=== PATIENT | male | born 1975 | race Caucasian/White ===

== ENCOUNTER → 2020-02-03 12:39 | Outpatient (CLI) | payer MEDICAID, SELFPAY ==
--- NOTE | 2020-02-03 12:48 | XR_ITS ---
PROCEDURE: XR FOOT WT BEARING LT 3V CLINICAL INDICATION: Comparison view COMPARISON: XR FOOT WT BEARING RT 3V from 02/03/2020 FINDINGS: No fracture or dislocation. No lytic or blastic change. There is normal mineralization. The joint spaces are well-preserved. No significant degenerative/arthritic changes. No erosive changes evident. Other findings:None. IMPRESSION: No acute findings. Dictated by: Sam Gutierres MD 02/03/2020 14:57 Electronically signed by Sam Gutierres MD in [place] 02/03/2020 14:57
--- NOTE | 2020-02-03 12:48 | XR_ITS ---
PROCEDURE: XR FOOT WT BEARING RT 3V CLINICAL INDICATION: Foot pain COMPARISON: No exams were available for comparison FINDINGS: No fracture or dislocation. No lytic or blastic change. There is normal mineralization. The joint spaces are well-preserved. No significant degenerative/arthritic changes. No erosive changes evident. Other findings:None. IMPRESSION: No acute findings. Dictated by: Sam Gutierres MD 02/03/2020 14:40 Electronically signed by Sam Gutierres MD in [place] 02/03/2020 14:40
[2020-02-03 14:54] LABS: Basophils # 0.1 K/mm3 (0-0.2); Basophils % 0.6 % (0.1-2.0); Eosinophils # 0.4 K/mm3 (0.0-0.4); Eosinophils % 4.2 % (0.1-12.0); Hematocrit 33.7 % (42.0-52.0); Hemoglobin 11.6 g/dL (14.1-18.0); Lymphocytes # 1.1 K/mm3 (0.7-4.5); Lymphocytes % 12.4 % (10-50); Mean Corpuscular HGB Conc 34.4 g/dL (31.8-35.4); Mean Corpuscular Hemoglobin 30.9 pg (27.0-31.2); Mean Corpuscular Volume 89.9 fl (80-94); Mean Platelet Volume 7.9 fl (7.4-10.4); Monocytes # 0.7 K/mm3 (0.1-1.0); Monocytes % 7.8 % (1.7-9.3); Neutrophils # 6.6 K/mm3 (1.8-7.8); Platelet Count 446 K/mm3 (142-424); Red Blood Count 3.75 M/mm3 (4.60-6.20); Red Cell Distribution Width 12.8 % (11.5-17.5); White Blood Count 8.8 K/mm3 (4.8-10.8)
[2020-02-03 16:24] LABS: Hemoglobin A1C 8.5 % (4.0-6.0)
[2020-02-03 16:27] LABS: Erythrocyte Sedimentation Rate > 140 mm/hr (0-15)
[2020-02-03 16:28] LABS: Chloride 98 mmol/L (98-107)
[2020-02-03 16:29] LABS: Potassium 4.6 mmoL/L (3.5-5.1); Sodium 137 mmol/L (136-145)
[2020-02-03 16:31] LABS: Alanine Aminotransferase 14 U/L (12-78); Aspartate Amino Transferase 18 U/L (17-59); Blood Urea Nitrogen 27 mg/dl (9-20); Estimated Glomerular Filt Rate 92 ml/min (>60); GFR (African American) 111 ML/MIN (>60)
[2020-02-03 16:32] LABS: Albumin Level 3.4 g/dl (3.5-5.0); Albumin/Globulin Ratio 1.3 (1.1-1.8); Alkaline Phosphatase 85 U/L (38-126); Anion Gap 12.6 mEq/L (5-15); Bilirubin,Total 0.4 mg/dl (0.2-1.3); Calcium 9.2 mg/dl (8.4-10.2); Carbon Dioxide 31 mmol/L (22.0-30.0); Globulin 2.6 g/dL (1.3-3.2); Glucose 128 mg/dl (74-100)
[2020-02-03 16:37] LABS: C-Reactive Protein 153.5 mg/L (0-4)
== END ==
PROVIDERS: PCP Nurse Practitioner Family; Visit Provider Podiatrist
DX: E11.8 Type 2 diabetes mellitus with unspecified complications (principal); M20.41 Other hammer toe(s) (acquired), right foot; M20.42 Other hammer toe(s) (acquired), left foot; M21.6X1 Other acquired deformities of right foot; M21.6X2 Other acquired deformities of left foot; L97.509 Non-pressure chronic ulcer of other part of unspecified foot with unspecified severity; E11.621 Type 2 diabetes mellitus with foot ulcer; Z79.4 Long term (current) use of insulin
CPT/HCPCS: 36415; 73630; 80053; 83036; 85025; 85651; 86140; 87070; 87077; 87186; 87205

== ENCOUNTER → 2020-02-03 16:43 | Outpatient (CLI) | payer MEDICAID, SELFPAY | PROVIDERS: Visit Provider Podiatrist | DX: E11.621 Type 2 diabetes mellitus with foot ulcer (principal); L97.509 Non-pressure chronic ulcer of other part of unspecified foot with unspecified severity | CPT/HCPCS: 87070; 87205 ==

== ENCOUNTER → 2020-02-09 13:58 | Outpatient (CLI) | payer MEDICAID, SELFPAY ==
--- NOTE | 2020-02-09 13:59 | MR_ITS ---
PROCEDURE: MR FOOT RT WO/W CON CLINICAL INDICATION: evaluate for osteomyelitis Diabetes with foot ulceration, pain swelling and tenderness COMPARISON: No exams were available for comparison TECHNIQUE: Routine multiplanar multi echo sequences are performed without and with gadolinium enhancement. FINDINGS: There is bone marrow edema involving the distal aspect of the 2nd metatarsal as well as the proximal phalanx of the 2nd toe with enhancement and mild surrounding soft tissue edema. These findings are suspicious for osteomyelitis with cellulitis.. There is edema surrounding the bone beginning in the mid 2nd metatarsal region extending distally. No obvious abscess or sinus tract. There is generalized subcutaneous edema of the foot and ankle. There is mild soft tissue swelling along the 3rd and 1st digit as well. No obvious ligamentous or tendinous abnormalities. IMPRESSION: The findings are compatible with bone marrow edema of the mid distal aspect of the 2nd metatarsal and the proximal phalanx of the 2nd digit which may be related osteomyelitis with associated cellulitis. Dictated by: Sam Gutierres MD 02/10/2020 09:19 Electronically signed by Sam Gutierres MD in [place] 02/10/2020 09:19
== END ==
PROVIDERS: Visit Provider Podiatrist
DX: L97.512 Non-pressure chronic ulcer of other part of right foot with fat layer exposed (principal); L97.519 Non-pressure chronic ulcer of other part of right foot with unspecified severity
CPT/HCPCS: 73720; A9576

== ENCOUNTER → 2020-02-11 15:06 | Outpatient (CLI) | payer MEDICAID, SELFPAY ==
--- NOTE | 2020-02-11 15:18 | ECG_ITS ---
APPROVED REPORT Exam: Resting ECG HR:81 bpm ECG Measurements Heart Rate 81 AXES PA 148 P 57 QRSd 90 QRS 66 QT 376 T 37 QTc 436 <Conclusion> Normal sinus rhythm Normal ECG Electronically signed by : Massimo Calderon, 02/11/2020 16:51:29
--- NOTE | 2020-02-11 15:21 | XR_ITS ---
PROCEDURE: XR CHEST 2V CLINICAL HISTORY: TOBACCO USE Smoker COMPARISON: No exams were available for comparison FINDINGS: The cardiomediastinal silhouette and pulmonary vascularity are within normal limits. The lungs are clear without infiltrates, suspicious nodules, or pleural effusions. No acute bony abnormalities. IMPRESSION: No acute findings. Dictated by: Sam Gutierres MD 02/11/2020 15:42 Electronically signed by Sam Gutierres MD in [place] 02/11/2020 15:42
== END ==
PROVIDERS: PCP Nurse Practitioner Family; Visit Provider Podiatrist
DX: Z01.818 Encounter for other preprocedural examination (principal); L97.519 Non-pressure chronic ulcer of other part of right foot with unspecified severity
CPT/HCPCS: 71046; 93005

== ENCOUNTER → 2020-02-14 08:01 | Outpatient (CLI) | payer MEDICAID, SELFPAY ==
[2020-02-15 17:22] LABS: Covid-19 Nasal PCR Sendout Lex Not Detected
== END ==
PROVIDERS: PCP Nurse Practitioner Family; Visit Provider Podiatrist
DX: Z03.818 Encounter for observation for suspected exposure to other biological agents ruled out (principal)
CPT/HCPCS: U0003

== ENCOUNTER → 2020-02-15 14:01 | Outpatient (CLI) | payer MEDICAID, SELFPAY ==
[2020-02-15 14:38] VITALS: BMI 21.3
--- NOTE | 2020-02-15 14:39 | XR_ITS ---
PROCEDURE: XR CHEST PORTABLE CLINICAL HISTORY: picc placement COMPARISON: XR CHEST 2V from 02/11/2020 FINDINGS: The cardiomediastinal silhouette and pulmonary vascularity are within normal limits. The lungs are clear without infiltrates, suspicious nodules, or pleural effusions. Left upper extremity PICC line has been placed. The tip is in good position in the region of the superior vena cava. Lung apices are clipped on the exam. IMPRESSION: New left upper extremity PICC line with tip in good position. Dictated by: Sam Gutierres MD 02/15/2020 15:01 Electronically signed by Sam Gutierres MD in [place] 02/15/2020 15:01
== END ==
PROVIDERS: PCP Nurse Practitioner Family; Visit Provider Podiatrist
DX: E10.621 Type 1 diabetes mellitus with foot ulcer (principal); L03.115 Cellulitis of right lower limb; A49.02 Methicillin resistant Staphylococcus aureus infection, unspecified site
CPT/HCPCS: 36569; 71045; C1751

== ENCOUNTER 2020-02-16 06:06 | Day surgery (SDC) | payer MEDICAID, SELFPAY ==
--- NOTE | 2020-02-12 13:20 | SUR.PREOP ---
02/12/20 @ 1320--PHONE CALL MADE TO PATIENT. PATIENT UNDERSTANDS THAT LAB WORK AND COVID-19 TESTING NEEDS TO BE COMPLETED @ 0800 @ 02/14/20. PATIENT UNDERSTANDS IF LAB WORK AND COVID-19 TESTS ARE NOT COMPLETED BY 12PM ON THAT DATE, THE SURGERY SCHEDULED WILL BE CANCELLED AND RESCHEDULED FOR ANOTHER TIME.
[2020-02-15 09:03] VITALS: BMI 21.3
--- NOTE | 2020-02-15 17:36 | PC.NURSE ---
notified of negative COVID 19 results.
[2020-02-16] VITALS (15 sets, daily range): BP systolic 132–166; BP diastolic 76–100; PULSE 89–97; RESP 15–21; TEMP 36.3–43; O2SAT 94–99
[2020-02-16 06:51] LABS: POC Glucose,Bedside 337 (70-110)
--- NOTE | 2020-02-16 07:02 | HMH.ANESCL ---
[facility] Anesthesia Checklist - Patient Identification Patient Identification: Arm Band, Verbal (Name & ) - Structural Data Admitted From: Home Planned Operative Procedure/s: Right foot I&D, second toe partial amputation Consent for Planned Operative Procedure(s) Verified: Yes Verified Documents: Surgical Consent, History and Physical - NPO Status Verified Time NPO: 04:30 (black coffee) - Chart Verification Results Verified: CBC, BMP - Additional verifications Fingerstick Blood Glucose: 337 (orders given) Anesthesia Reactions: No Hx Blood Transfusions: No Blood Transfusion Reaction: No - Airway Assessment C-Spine Mobility Assessed: Yes TMJ Mobility Assessed: Yes Dentition: Edentulous (Dentures removed) - Neurological Assessment Level of Consciousness: Awake, Alert, Appropriate, Follows Commands Hx Seizures: No Numbness or tingling in extremities: Yes (lower extremities) - Anesthesia Plan Anesthesia Risk discussed: Yes Anesthesia Plan: Verified ASA Class: III Anesthesia Type: General [facility] History I have reviewed the patient's past medical history: Yes Medical History: Reports:: Diabetes Mellitus Type 1, Hyperlipidemia, Hypertension Denies:: Cancer, Diabetes Mellitus Type 2, Internal Pacemaker, MRSA, Seizures *Have you ever received a pneumonia vaccine?: No *Have you received a flu vaccine this season?: Yes Other Medical History: Denies: Blood Transfusion Reaction Anesthesia experience/problems:: none Other Surgeries: Yes: No Previous Surgery. No: Pacemaker Amputation: No Fractures: No - *Social History Educational Level: Attended High School Smoking Status: Current every day smoker Tobacco Type: cigarettes # Packs/Day (cigarettes): 1 Alcohol Intake: never Alcohol Intake Frequency:: holidays/special occasions only Substance Use Type: marijuana *Occupational Status:: employed Housing: house Household Members: spouse *Travel in the last 8 weeks: None Family Hx:: Cancer
--- NOTE | 2020-02-16 07:08 | SUR.PREOP ---
0707-gave 10units HumulinR as per Natalia ACID PATROLLER for 337 FSBS
--- NOTE | 2020-02-16 07:22 | HMH.OPNOTE ---
Date of procedure: 02/16/20 Pre-op Diagnosis:: 1. Right diabetic foot infection 2. Right 2nd toe, metatarsal osteomyelitis 3. Right sub 2nd metatarsal diabetic foot ulcer 4. Right foot equinus 5. Right foot cellulitis 6. Right sub 4th metatarsal callus Post-op Diagnosis:: Same Procedure performed:: 1. Right second partial ray amputation (toe and partial metatarsal) 2. Right foot incision and drainage 3. Right wound debridement 4. Right excision of ulcer with delayed primary closure 5. Right tendo Achilles lengthening 6. Right sub 4th metatarsal callus debridement 7. Right application of antibiotic beads 8. Application of right posterior splint Surgeon:: Poornima Foss DPM COW RIDER:: Pan Castrejon Anesthesia: GETA, local (0.5% marcaine plain) Estimated blood loss (mL): 10 Clinical Note:: RIGHT DM FOOT INFECTION, ULCER, OM: Radiographs and MRI of the right foot were reviewed and discussed with the patient. We discussed conservative versus surgical treatment options. Conservative treatment options include local wound care, oral and IV antibiotics, change in shoe wear, taping/padding, and off-loading. Discussed that patient would benefit from a wider and deeper shoe wear to accommodate the deformity. We discussed surgical intervention for amputation of the right 2nd toe and metatarsal. Patient understands that there is a chance that the toes can migrate to fill the gap or the foot may change shape after surgery. Patient also understands that they could have wound healing complications including delayed healing and infection. We discussed that if the wound does not heal, it is possible that they may need a more proximal amputation and could result in further loss of digits, loss of partial foot or loss of leg. We discussed the risks and benefits in great detail. Other surgical risks include: prolonged pain and swelling, further infection requiring oral or IV antibiotics, delay in healing of soft tissue or bone, nerve or blood vessel damage, CRPS/RSD, DVT, anesthesia complications, and even . All questions answered. Patient verbalized understanding. Consent obtained. Medical clearance per Mercedes Rothman on 02/12/20. She started patient on nicotine patches. Pre-op labs: ESR, CRP, Ha1c, CBC, CMP, EKG, CXR reviewed. Covid test per [facility] policy. e-Rx [place] 7.5/325, Ibuprofen 800mg, Zofran 4mg. Operative findings:: Right diabetic foot infection, with cellulitis noted to the 2nd MPJ. Callus noted to sub 4th metatarsal, no underlying ulcer. Ulcer noted to sub 2nd metatarsal, measures ~3.5x1.8x0.3cm. Ulcer excised in total, no purulence noted. The 2nd proximal phalanx and met head were soft and crumbly. Margin was hard. No sinus tracking. Equinus noted. Operative note:: On this date and time patient was deemed an appropriate surgical candidate. With informed consent signed, the patient was taken to the operating theater. The patient was positioned supine. General anesthesia was induced. No tourniquet used. Pre-op right ankle and forefoot blocks given with 20 cc 0.5% marcaine plain. Right tendo Achilles lengthening: Attention was directed to the foot, which was prepped and draped in a normal sterile fashion. Utilizing a 15 blade stab incision was made x3 in the distal posterior leg. Utilizing the three holes, percutaneous greg-section of the Achilles was performed with the foot maximally dorsiflexed. Release of the Achilles contracture was noted. The incisions were flushed with copious amounts of sterile saline and the wound was closed with Prolene. Right foot incision and drainage: Attention was directed to dorsal foot where incision linear made over 2nd metatarsal proximally. Serosanginous drainage noted. Wound culture taken. Right 2nd partial ray amputation (toe + partial metatarsal): A fishmouth incision was mapped out surrounding the second digits extending onto the metatarsal head. Utilizing a 15 blade dissection was carried down sharply full-thickness to the l
[2020-02-16 08:42] LABS: POC Glucose,Bedside 76 (70-110)
[2020-02-16 08:53] LABS: POC Glucose,Bedside 73 (70-110)
--- NOTE | 2020-02-16 09:00 | XR_ITS ---
PROCEDURE: XR FOOT RT MIN 3V CLINICAL INDICATION: Post op amp Follow-up amputation COMPARISON: XR FOOT WT BEARING RT 3V from 02/03/2020 XR FOOT WT BEARING LT 3V from 02/03/2020 MR FOOT RT WO/W CON from 02/09/2020 FINDINGS: There has been amputation at the mid to distal aspect of the 2nd metatarsal with antibiotic beads in place with good alignment of the bony structures. There is a posterior splint in place. IMPRESSION: Status post amputation of the distal aspect of the 2nd metatarsal as described Dictated by: Sam Gutierres MD 02/16/2020 14:39 Electronically signed by Sam Gutierres MD in [place] 02/16/2020 14:39
[2020-02-16 09:55] LABS: POC Glucose,Bedside 86 (70-110)
--- NOTE | 2020-02-16 14:31 | SUR.PHASEI ---
0848: FSBS 73, patient felt unusual as not used to having blood sugar this low, ORNAMENTAL BRICK INSTALLER suggested OJ-patient drank 4 oz OJ and felt more alert, more himself
--- NOTE | 2020-02-16 14:38 | SUR.PHASEI ---
Passed on to post op that patient is to be contacted by [facility] bout IV antibiotic therapy, they will call him today. Check patient's sugar as he had the 4 oz OJ and he states that after one glass his sugar will go to 250 from the low 70s. Also that patient can wear his boot if it fits, but he does not have to wear it, but he is to be NWB. Also explain to patient that he is to reinforce dressing if it becomes bloody, do not remove dressing.
--- NOTE | 2020-02-16 14:44 | P.PN_ITS ---
[facility] Anesthesia Record Part I Intake, IV Amount: 840 Estimated blood loss (mL): 10 Urine output (mL): 0 Blood Pressure: 142/83 SaO2: 99 Pulse Rate: 97 Respiratory Rate: 16 Temperature: 97.9 F Patient is:: Drowsy, Stable Stable to PACU at:: 08:40
--- NOTE | 2020-02-16 14:45 | HMH.ANESII ---
[facility] Anesthesia Record Part II Discharge Time: 09:24 Destination: Surgical Day Care (OP Surgery) PACU nurse assessment reviewed?: Yes Patient Condition:: Good Anesthesia Complications:: None Swallowing reflex intact?: Yes Cyanosis?: No Blood Pressure: 138/88 Pulse Rate: 89 Temperature: 97.7 F Mental Status: Alert & Oriented Pain level:: 0 Nausea and/or vomitting:: None Intake, IV Amount: 0
[2020-02-17 08:45] LABS: POC Glucose,Bedside < 40 (70-110)
== END 2020-02-16 10:20 | disposition home or self-care (01) ==
LOC: OR 06:07
PROVIDERS: PCP Nurse Practitioner Family; Visit Provider Podiatrist
PROC: (CPT 28810; principal; 2020-02-16 07:30)
DX: E11.621 Type 2 diabetes mellitus with foot ulcer (principal); M86.071 Acute hematogenous osteomyelitis, right ankle and foot; L97.514 Non-pressure chronic ulcer of other part of right foot with necrosis of bone; L97.512 Non-pressure chronic ulcer of other part of right foot with fat layer exposed; Z79.4 Long term (current) use of insulin; Z79.899 Other long term (current) drug therapy; A49.02 Methicillin resistant Staphylococcus aureus infection, unspecified site; M67.01 Short Achilles tendon (acquired), right ankle; M24.571 Contracture, right ankle
CPT/HCPCS: 28810; 11042; 11045; 27685; 73630; 82962; 87070; 87077; 87186; 87205; 96374; C1713; J2405; J3370

== ENCOUNTER → 2020-03-29 16:09 | Outpatient (CLI) | payer MEDICAID, SELFPAY ==
--- NOTE | 2020-03-29 16:14 | XR_ITS ---
PROCEDURE: XR ANKLE WT BEARING RT MIN 3V CLINICAL INDICATION: Ankle Pain Posttraumatic pain COMPARISON: No exams were available for comparison FINDINGS: No fracture or dislocation. No lytic or blastic change. There is normal mineralization. The joint spaces are well-preserved. No significant degenerative/arthritic changes. No erosive changes evident. Other findings:None. IMPRESSION: No acute findings. Dictated by: Sam Gutierres MD 03/29/2020 16:42 Electronically signed by Sam Gutierres MD in [place] 03/29/2020 16:42
--- NOTE | 2020-03-29 16:14 | XR_ITS ---
PROCEDURE: XR FOOT WT BEARING RT 3V CLINICAL INDICATION: S/P Foot surgery Follow-up amputation COMPARISON: XR FOOT WT BEARING RT 3V from 02/03/2020 XR FOOT WT BEARING LT 3V from 02/03/2020 XR FOOT RT MIN 3V from 02/16/2020 FINDINGS: Status post amputation at the distal shaft of the 2nd metatarsal. The antibiotic beads have mostly dissolved. There is some minimal density noted at the tip of the amputation site which could be related to some minimal antibiotic beads material. No bony destructive process evident. The joint spaces are well-preserved. No significant degenerative/arthritic changes. No erosive changes evident. Other findings:None. IMPRESSION: Post amputation changes at the distal aspect of the 2nd metatarsal Dictated by: Sam Gutierres MD 03/29/2020 16:44 Electronically signed by Sam Gutierres MD in [place] 03/29/2020 16:44
== END ==
PROVIDERS: PCP Nurse Practitioner Family; Visit Provider Podiatrist
DX: Z98.890 Other specified postprocedural states (principal); M25.571 Pain in right ankle and joints of right foot
CPT/HCPCS: 73610; 73630

== ENCOUNTER → 2020-11-07 15:54 | Outpatient (CLI) | payer OTHER, SELFPAY ==
--- NOTE | 2020-11-07 16:02 | XR_ITS ---
PROCEDURE: XR FOOT WT BEARING RT 3V CLINICAL INDICATION: right hallux ulcer Follow-up amputation and ulcer COMPARISON: CR XR FOOT WT BEARING RT 3V from 02/03/2020 CR XR FOOT WT BEARING LT 3V from 02/03/2020 CR XR FOOT RT MIN 3V from 02/16/2020 CR XR FOOT WT BEARING RT 3V from 03/29/2020 FINDINGS: Hammertoe deformity is present at the 1st digit Bandage artifact with soft tissue defect noted along the dorsal aspect the 1st interphalangeal junction. There is some bony destruction suspected at the distal aspect the proximal phalanx of the great toe suggesting acute osteomyelitis. MRI may confirm if clinically desired. There has been amputation at the distal shaft of the 2nd metatarsal. Faint calcification is noted at this area as well. Other findings:None. IMPRESSION: Hammertoe deformity at the 1st interphalangeal joint with suspected area of bony destruction at the distal and dorsal aspect of the proximal phalanx of the great toe suspicious for osteomyelitis with overlying ulceration Dictated by: Sam Gutierres MD 11/07/2020 16:27 Sam Gutierres MD in [place] 11/07/2020 16:27
[2020-11-07 17:36] LABS: Basophils # 0.1 K/mm3 (0-0.2); Basophils % 0.8 % (0.1-2.0); Eosinophils # 0.9 K/mm3 (0.0-0.4); Eosinophils % 8.6 % (0.1-12.0); Hematocrit 43.4 % (42.0-52.0); Hemoglobin 13.9 g/dL (14.1-18.0); Lymphocytes # 1.4 K/mm3 (0.7-4.5); Lymphocytes % 14.6 % (10-50); Mean Corpuscular HGB Conc 31.9 g/dL (31.8-35.4); Mean Corpuscular Hemoglobin 30.3 pg (27.0-31.2); Mean Platelet Volume 7.1 fl (7.4-10.4); Monocytes # 0.5 K/mm3 (0.1-1.0); Monocytes % 4.8 % (1.7-9.3); Neutrophils % 71.2 % (37.0-80.0); Platelet Count 478 K/mm3 (142-424); Red Blood Count 4.57 M/mm3 (4.60-6.20); Red Cell Distribution Width 14.4 % (11.5-17.5); White Blood Count 9.9 K/mm3 (4.8-10.8)
[2020-11-07 18:00] LABS: Chloride 95 mmol/L (98-107)
[2020-11-07 18:01] LABS: Potassium 4.6 mmoL/L (3.5-5.1); Sodium 136 mmol/L (136-145)
[2020-11-07 18:03] LABS: Alanine Aminotransferase 22 U/L (12-78); Alkaline Phosphatase 93 U/L (38-126); Anion Gap 12.6 mEq/L (5-15); Aspartate Amino Transferase 30 U/L (17-59); Bilirubin,Total 0.5 mg/dl (0.2-1.3); Blood Urea Nitrogen 22 mg/dl (9-20); Carbon Dioxide 33 mmol/L (22.0-30.0); Estimated Glomerular Filt Rate 91 ml/min (>60); GFR (African American) 110 ML/MIN (>60)
[2020-11-07 18:04] LABS: Albumin Level 4.3 g/dl (3.5-5.0); Albumin/Globulin Ratio 1.5 (1.1-1.8); Globulin 2.9 g/dL (1.3-3.2); Glucose 192 mg/dl (74-100); Total Protein,Serum 7.2 g/dl (6.3-8.2)
[2020-11-07 18:23] LABS: Erythrocyte Sedimentation Rate 42 mm/hr (0-15)
[2020-11-07 18:28] LABS: C-Reactive Protein 2.6 mg/L (0-4)
== END ==
PROVIDERS: PCP Nurse Practitioner Family; Visit Provider Podiatrist
DX: L97.519 Non-pressure chronic ulcer of other part of right foot with unspecified severity (principal); Z51.89 Encounter for other specified aftercare
CPT/HCPCS: 36415; 73630; 80053; 85025; 85651; 86140; 87070; 87077; 87186; 87205

== ENCOUNTER → 2020-11-07 16:32 | Outpatient (CLI) | payer OTHER, SELFPAY | PROVIDERS: Visit Provider Podiatrist | DX: Z51.89 Encounter for other specified aftercare (principal); E08.621 Diabetes mellitus due to underlying condition with foot ulcer; L97.512 Non-pressure chronic ulcer of other part of right foot with fat layer exposed; Z79.4 Long term (current) use of insulin | CPT/HCPCS: 87070; 87077; 87186; 87205 ==

== ENCOUNTER → 2020-11-14 13:08 | Outpatient (CLI) | payer OTHER, MEDICAID, SELFPAY ==
--- NOTE | 2020-11-14 13:08 | MR_ITS ---
PROCEDURE: MR FOOT RT WO/W CON CLINICAL INDICATION: infected wound PT IS A DIABETIC AND HAD AMPUTATION OF 2ND TOE. ULCER ON TOP OF BIG TOE [id number]. COMPARISON: CR XR FOOT WT BEARING RT 3V from 11/07/2020 TECHNIQUE: Routine multiplanar multi echo sequences are performed without and with gadolinium enhancement. FINDINGS: Motion artifact obscures fine detail despite repeating the exam. There has been amputation at the mid shaft of the 2nd metatarsal. There is diffuse increased STIR signal involving the entire length of the proximal phalanx of the great toe and the distal phalanx of the great toe. The T2 hyperintensity is greatest at the distal aspect of the proximal phalanx. There is also soft tissue thickening with increased T2 signal at the great toe. Contrast enhancement is noted at the proximal and distal phalanx of the great toe. The 1st metatarsal has an unremarkable appearance. There is a small amount fluid in the ankle joint at the talocalcaneal region. IMPRESSION: 1. Cellulitis of the great toe with abnormal signal intensity of the distal and proximal phalanx of the great toe suspicious for osteomyelitis at least at the distal aspect of the proximal phalanx. The abnormal signal involving the proximal aspect of the proximal phalanx of the distal phalanx could be reactive or also related to osteomyelitis. 2. Prior amputation at the mid shaft of the 2nd metatarsal. Dictated by: Sam Gutierres MD 11/17/2020 09:55 Sam Gutierres MD in [place] 11/17/2020 09:55
== END ==
PROVIDERS: PCP Nurse Practitioner Family; Visit Provider Podiatrist
DX: E08.621 Diabetes mellitus due to underlying condition with foot ulcer (principal); M86.9 Osteomyelitis, unspecified; L03.031 Cellulitis of right toe; L97.502 Non-pressure chronic ulcer of other part of unspecified foot with fat layer exposed; Z79.4 Long term (current) use of insulin
CPT/HCPCS: 73720; A9576

== ENCOUNTER → 2020-11-17 07:53 | Outpatient (CLI) | payer OTHER, MEDICAID, SELFPAY ==
--- NOTE | 2020-11-17 08:09 | XR_ITS ---
PROCEDURE: XR CHEST 2V CLINICAL HISTORY: HTN,CURRENT SMOKER COMPARISON: No exams were available for comparison FINDINGS: The cardiomediastinal silhouette and pulmonary vascularity are within normal limits. The lungs are clear without infiltrates, suspicious nodules, or pleural effusions. No acute bony abnormalities. IMPRESSION: No change with no acute finding Dictated by: Sam Gutierres MD 11/17/2020 08:51 Sam Gutierres MD in [place] 11/17/2020 08:51
--- NOTE | 2020-11-17 08:34 | ECG_ITS ---
APPROVED REPORT Exam: Resting ECG HR:87 bpm ECG Measurements Heart Rate 87 AXES DE 238 P 21 QRSd 84 QRS 86 QT 358 T 99 QTc 430 Conclusion Sinus rhythm with 1st degree AV block Otherwise normal ECG Electronically signed by : Massimo Calderon, 11/17/2020 21:04:48
[2020-11-17 11:18] LABS: Coronavirus 19 IgG Antibody Negative (Negative); Coronavirus 19 IgM Antibody Negative (Negative)
== END ==
PROVIDERS: PCP Nurse Practitioner Family; Visit Provider Podiatrist
DX: Z01.818 Encounter for other preprocedural examination (principal); Z20.822 Contact with and (suspected) exposure to COVID-19; M86.271 Subacute osteomyelitis, right ankle and foot
CPT/HCPCS: 36415; 71046; 86328; 93005

== ENCOUNTER 2020-11-18 06:23 | Day surgery (SDC) | payer OTHER, MEDICAID, SELFPAY ==
[2020-11-18] VITALS (10 sets, daily range): BP systolic 119–181; BP diastolic 74–97; PULSE 83–98; RESP 12–18; TEMP 36.4–36.7; O2SAT 97–99; BMI 20.7
[2020-11-18 07:03] LABS: POC Glucose,Bedside 64 (70-110)
--- NOTE | 2020-11-18 07:17 | HMH.OPNOTE ---
Date of procedure: 11/18/20 Pre-op Diagnosis:: 1. Right hallux diabetic ulcer 2. Right hallux osteomyelitis 3. Right hallux cellulitis Post-op Diagnosis:: Same Procedure performed:: 1. Right hallux amputation 2. Right foot irrigation and debridement 3. Right ulcer excision Surgeon:: Poornima Foss DPM REACHER:: Derrick Solis Anesthesia: GETA, local (30cc 0.56% marcaine plain) Estimated blood loss (mL): 10 Clinical Note:: Patient is a 45M who presents with a diabetic right great toe ulcer and osteomyelitis. PRE-OP AMPUTATION/INFECTION: X-rays 3 views right foot and right foot MRI taken 11/07/2020 and 11/14/2020 were reviewed and discussed with the patient. Imaging suspicious for osteomyelitis hallux. We discussed conservative versus surgical treatment options. Conservative treatment options include local wound care, oral and IV antibiotics, change in shoe wear, taping/padding, and off-loading. We discussed surgical intervention for amputation of the right hallux. Patient understands that there is a chance that the toes can migrate to fill the gap or the foot may change shape after surgery. Patient also understands that they could have wound healing complications including delayed healing and infection. We discussed that if the wound does not heal, it is possible that they may need a more proximal amputation and could result in further loss of digits, loss of partial foot or loss of leg. We discussed the risks and benefits in great detail. Other surgical risks include: prolonged pain and swelling, further infection requiring oral or IV antibiotics, delay in healing of soft tissue or bone, nerve or blood vessel damage, CRPS/RSD, DVT, anesthesia complications, and even . All questions answered. Patient verbalized understanding. Consent obtained. We discussed oral versus IV antibiotics in detail. Patient previously had a right second partial ray resection with PICC line. Patient would like to avoid PICC line the surgery so he can continue to work in the fracture boot. We will do IV antibiotics the day of surgery and continue 2 weeks of oral antibiotics. I explained if the wound does not appear to be healing or if there is an increase in cellulitis postop visit 1-2, then will need PICC with IV antibiotics. Patient verbalized understanding and agreement with the treatment plan. PCP, Ethel gaona [facility]. Pre-op labs: ESR, CRP, Ha1c, CBC, CMP, EKG, CXR, Covid. Cardiac clearance granted per Dr. DAVIS/Maritza. Wound culture right great toe ulcer, 11/07/2020: MRSA, VRE. e-Rx Bactrim DS, Doxy 100mg BIX x 2 weeks (11/18/20-12/02/20). Operative findings:: Right dorsal hallux interphalangeal joint diabetic ulcer. There is vic wound edema and erythema. Mild maceration. No ascending cellulitis. Predebridement, right great toe wound measurements: 1.2x1.4x0.3cm, 75% granular wound base, 25% exposed yellow-white extensor tendon laterally. The distal phalanx soft and crumbly with purulence noted. Proximal phalanx head is soft but the base was intact. First metatarsal head had no obvious cortical erosions or obvious signs of osteomyelitis noted. Infection tend to be localized underneath the ulceration site. No tracking up the tendons. Operative note:: On this date and time patient was deemed an appropriate surgical candidate. With informed consent signed, the patient was taken to the operating theater. The patient was positioned supine. General anesthesia was induced. No tourniquet used. Pre-op right hallux and ankle blocks given with 30 cc 0.5% marcaine plain. IV daptomycin and gentamicin given. Right hallux amputation, irrigation and debridement, ulcer excision: The right lower extremity was prepped and drapped in normal sterile fashion. Cellulitis noted around the ulcer. A fish mouth incision was mapped out. Utilizing a 15 blade dissection was carried down sharply to the level of the bone around the distal phalanx which was disarticulated from the proximal phalanx. The ulcer w
--- NOTE | 2020-11-18 08:01 | HMH.ANESI ---
[facility] Anesthesia Record Part I Intake, IV Amount: 1,500 Estimated blood loss (mL): 0 Urine output (mL): 0 Blood Pressure: 119/77 SaO2: 97 Pulse Rate: 83 Respiratory Rate: 12 Temperature: 97.5 F Patient is:: Awake, Stable Stable to PACU at:: 07:55
--- NOTE | 2020-11-18 08:15 | XR_ITS ---
PROCEDURE: XR FOOT RT MIN 3V CLINICAL INDICATION: Post op amp Follow-up surgery COMPARISON: CR XR FOOT WT BEARING LT 3V from 02/03/2020 CR XR FOOT RT MIN 3V from 02/16/2020 CR XR FOOT WT BEARING RT 3V from 03/29/2020 CR XR FOOT WT BEARING RT 3V from 11/07/2020 FINDINGS: Status post amputation at the 1st metatarsophalangeal junction with postsurgical changes of the soft tissues at that region. There is an old amputation at the mid to distal shaft of the 2nd metatarsal. The joint spaces are well-preserved. No significant degenerative/arthritic changes. No erosive changes evident. Other findings:None. IMPRESSION: Postsurgical changes as described Dictated by: Sam Gutierres MD 11/18/2020 09:07 Sam Gutierres MD in [place] 11/18/2020 09:07
--- NOTE | 2020-11-18 15:16 | P.PN_ITS ---
[facility] Anesthesia Record Part II Discharge Time: 08:25 Destination: Surgical Day Care (OP Surgery) PACU nurse assessment reviewed?: Yes Patient Condition:: Good Anesthesia Complications:: None Swallowing reflex intact?: Yes Cyanosis?: No Blood Pressure: 143/76 Pulse Rate: 88 Temperature: 97.6 F Mental Status: Alert & Oriented Pain level:: 0 Nausea and/or vomitting:: None Intake, IV Amount: 0
== END 2020-11-18 08:55 | disposition home or self-care (01) ==
LOC: OR 06:24
PROVIDERS: PCP Nurse Practitioner Family; Visit Provider Podiatrist
PROC: (CPT 28825; principal; 2020-11-18 07:30)
DX: L97.512 Non-pressure chronic ulcer of other part of right foot with fat layer exposed (principal); M86.271 Subacute osteomyelitis, right ankle and foot; Z72.0 Tobacco use; E11.621 Type 2 diabetes mellitus with foot ulcer; Z79.4 Long term (current) use of insulin; Z79.899 Other long term (current) drug therapy; Z22.39 Carrier of other specified bacterial diseases; L03.031 Cellulitis of right toe; B95.7 Other staphylococcus as the cause of diseases classified elsewhere
CPT/HCPCS: 28825; 73630; 82962; 87070; 87077; 87186; 87205; 96374; J0878; J2405

== ENCOUNTER → 2020-12-15 13:26 | Outpatient (CLI) | payer OTHER, MEDICAID, SELFPAY ==
[2020-12-15 13:51] LABS: Basophils # 0.1 K/mm3 (0-0.2); Basophils % 0.4 % (0.1-2.0); Eosinophils # 0.4 K/mm3 (0.0-0.4); Eosinophils % 3.5 % (0.1-12.0); Hemoglobin 13.8 g/dL (14.1-18.0); Lymphocytes # 1.7 K/mm3 (0.7-4.5); Lymphocytes % 14.7 % (10-50); Mean Corpuscular HGB Conc 32.2 g/dL (31.8-35.4); Mean Corpuscular Hemoglobin 30.6 pg (27.0-31.2); Mean Corpuscular Volume 95.1 fl (80-94); Mean Platelet Volume 7.4 fl (7.4-10.4); Monocytes # 0.4 K/mm3 (0.1-1.0); Monocytes % 3.7 % (1.7-9.3); Neutrophils # 8.9 K/mm3 (1.8-7.8); Neutrophils % 77.7 % (37.0-80.0); Platelet Count 301 K/mm3 (142-424); Red Blood Count 4.52 M/mm3 (4.60-6.20); Red Cell Distribution Width 14.1 % (11.5-17.5); White Blood Count 11.4 K/mm3 (4.8-10.8)
[2020-12-15 14:24] LABS: Erythrocyte Sedimentation Rate 13 mm/hr (0-15)
[2020-12-15 14:39] LABS: Hemoglobin A1C 9.6 % (4.0-6.0)
[2020-12-15 14:49] LABS: Alanine Aminotransferase 78 U/L (12-78); Albumin/Globulin Ratio 1.8 (1.1-1.8); Alkaline Phosphatase 95 U/L (38-126); Anion Gap 14.7 mEq/L (5-15); Aspartate Amino Transferase 76 U/L (17-59); Bilirubin,Total 0.4 mg/dl (0.2-1.3); Blood Urea Nitrogen 41 mg/dl (9-20); Calcium 10.2 mg/dl (8.4-10.2); Carbon Dioxide 31 mmol/L (22.0-30.0); Chloride 100 mmol/L (98-107); Estimated Glomerular Filt Rate 44 ml/min (>60); GFR (African American) 53 ML/MIN (>60); Globulin 2.8 g/dL (1.3-3.2); Glucose 57 mg/dl (74-100); Potassium 5.7 mmoL/L (3.5-5.1); Sodium 140 mmol/L (136-145); Total Protein,Serum 7.8 g/dl (6.3-8.2)
[2020-12-15 14:59] LABS: C-Reactive Protein 0.7 mg/L (0-4)
== END ==
PROVIDERS: Visit Provider Podiatrist
DX: E11.40 Type 2 diabetes mellitus with diabetic neuropathy, unspecified (principal); Z98.890 Other specified postprocedural states; Z79.4 Long term (current) use of insulin
CPT/HCPCS: 36415; 80053; 83036; 85025; 85651; 86140

== ENCOUNTER → 2020-12-29 06:34 | Outpatient (CLI) | payer OTHER, MEDICAID, SELFPAY ==
--- NOTE | 2020-12-29 06:34 | CA_ITS ---
APPROVED REPORT Exam: Pharmacologic Technologist: Carlotta España, Ht: 6 ft 5 in Wt: 165 lbs BSA: 2.06 m2 HR: 71 bpm BP: 147/83 mmHg Medical History Medications: Lisinopril,,,,, Nicotine,,,,, INSULIN,,,,, Ibuprofen,,,,, OxYCODONE,,,,, RoSUVASTATIN,,,,, Metroprolol,,,,, ONdansteron,,,,, Stress Test Details Test: LEXISCAN HR Resting HR: 71 bpm Max Heart Rate (APMHR): 175.515733 bpm Max HR Achieved: 103 bpm Target HR (85% APMHR): 148.113001 bpm % of APMHR: 58.86 Recovery HR: 81 bpm BP Resting BP: 147/83 mmHg Max BP: 174/83 mmHg Recovery BP: 135.0/79.0 mmHg ECG Resting ECG: NSR, normal Clinical Exercise duration: 04:00 min Highest Stage Achieved: Exercise capacity: 1.0 METs Stress ECG Conclusion Symptoms: SOA, Malaise, No CP Arrhythmias/Ectopy: Occ PVC ST-T Changes: No significant changes Conclussion: Unremarkable Lexiscan stress. iRewind images reported separately Electronically signed by : Jemal Portillo, 12/29/2020 14:29:48
--- NOTE | 2020-12-29 06:34 | CA_ITS ---
APPROVED REPORT EXAM: Comprehensive 2D, Doppler, and color-flow Echocardiogram Low Raw Sugar Cutter: Yolis Davey RDCS Ht: 6 ft 5 in Wt: 165lbs BSA: 2.06 BP: 112/75 mmHg Indications: SOA SMOKER HTN,DM,BARAJAS 2D Dimensions LVOT 2.28 cm (M/F) 1.5-2.5 LA Volume 55.50 mL LA Volume Index 26.94 mL/m2 (M/F) 16-34 M-Mode Dimensions RVDd 2.08 cm (0.9-2.6) LA Diam 3.26 cm (1.9-4.0) LVDd 5.23 cm (3.5-5.7) Ao Diam 2.83 cm (2.0-3.7) LVDs 3.39 cm (3.5-5.7) IVSd 1.04 cm (0.6-1.1) PWd 0.77 cm (0.6-1.1) EF (Teich) 64.10% FS 35.20% EDV (Teich) 131.20 mL TAPSE 2.39 (<1.7) ESV (Teich) 47.10 mL LV Diastology E Decel Time 180.00 (160-240 msec) E/A Ratio 0.9 MED E' 8.50 (< 7 cm/sec) E'/MED E' Ratio 6.20 (>14) LAT E' 12.40 (<10 cm/sec) E/LAT E' Ratio 4.25 (>14) Mitral Valve MV E Max Tray. 53.00 (40-130 cm/s) MV A Velocity 61.00 (40-130 cm/s) E/A Ratio 0.86 MV Decel. Time 180.00 (160-240 ms) MV PHT 53.00 ms Tricuspid Valve TR P. Velocity 231.00 cm/s RAP Estimate 10.00 mmHg RVSP 31.40 mmHg Left Ventricle Left atrium is normal size, left ventricle is normal size, there is no concentric left ventricular hypertrophy, visually estimated ejection fraction 55% with no regional wall motion abnormality, diastolic parameters are within normal range. Right Ventricle Right atrium and right ventricle are normal size and contractility. Aortic Valve Aortic valve is grossly normal, there is no aortic stenosis or aortic insufficiency. Mitral Valve Mitral valve is grossly normal, there is trace mitral regurgitation. Tricuspid Valve Tricuspid grossly normal, there is trace tricuspid regurgitation. Pulmonic Valve Pulmonic valve is poorly visualized. Great Vessels Aortic root is normal size. Pericardium No significant pericardial effusion noted. Conclusion 1. Normal left ventricular size, preserved left ventricular systolic function, visually estimated ejection fraction 55% with no regional wall motion abnormality. Diastolic parameters are within normal range. 2. Trace mitral and tricuspid regurgitation. 3. No significant pericardial effusion noted. Electronically signed by : Jemal Portillo, 12/29/2020 15:48:45
--- NOTE | 2020-12-29 06:34 | NM_ITS ---
APPROVED REPORT Exam: Nuclear Stress Test Indication: abn ekg..hypertension..smoker Patient Location: Outpatient Stress Tech: Carlotta España [place] Tech:SHY Caputo RT(R)(N) Ht: 6 ft 5 in Wt: 170 lbs HR: 71 bpm BP: 147/83 mmHg BSA: 2.09 m2 BMI: 20.1 History: abn ekg..hypertension..smoker Procedure: Patient received a 0.4 mg of intravenous Lexiscan, resting heart rate 71 bpm, resting blood pressure 147/83 mmHg, with Lexiscan maximum heart rate achived was 97 bpm which is 85 % of the maximum predicted heart rate and blood pressure was 151/77 mmHg. With Lexiscan, patient denied any complaint of chest pain. Electrocardiogram Resting electrocardiogram showed sinus rhythm, with Lexiscan there is less than 1.[address] segment depression noted from the baseline EKG. The EKG portion of the Lexiscan is nondiagnostic. Cardiac Stress and Resting SPECT Images: Cardiac Stress and Resting SPECT images were obtained using technetium 99m Myoview 32.3 mCi stress and 10.0 mCi at rest. Gated SPECT for analysis of segmental wall motion and calculation of the ejection fraction also done. Prone images were also obtained. Cardiac stress and resting SPECT images show uniform myocardial activity without segmental perfusion abnormality, computer derived ejection fraction is 51% with no regional wall motion abnormality, right ventricle is normal size and contractility. Conclusion: 1. The EKG portion of the Lexiscan is nondiagnostic. 2. No scintigraphic evidence of reversible ischemia seen, computer derived ejection fraction is 51% with no regional wall motion abnormality, right ventricle is normal size and contractility. 3. Normal Lexiscan Myoview study. Electronically signed by : Jemal Portillo, 12/29/2020 14:38:49
== END ==
PROVIDERS: PCP Nurse Practitioner Family; Visit Provider Physician Assistant
DX: R06.00 Dyspnea, unspecified (principal); I10 Essential (primary) hypertension; E10.51 Type 1 diabetes mellitus with diabetic peripheral angiopathy without gangrene; E78.2 Mixed hyperlipidemia; Z79.4 Long term (current) use of insulin
CPT/HCPCS: 78452; 93017; 93306; A9502; J2785

== ENCOUNTER → 2021-01-10 08:27 | Outpatient (CLI) | payer SELFPAY ==
--- NOTE | 2021-01-10 08:27 | CT_ITS ---
PROCEDURE: CT HEART W CALCIUM SCORE CLINICAL HISTORY: eval for cad COMPARISON: No exams were available for comparison TECHNIQUE: Axial images obtained with sagittal and coronal reformats. All CT scans at the facility use one or more dose reduction, viz: automated exposure control, ma/kV adjustment per patient size (including targeted exams where dose is matched to indication, i.e. head), or iterative reconstruction technique. FINDINGS: The coronary artery calcium score is 90. Mild calcific plaque burden with moderate cardiovascular disease risk. No significant incidental findings apparent IMPRESSION: Mild calcific plaque burden with moderate cardiovascular disease risk Dictated by: Sam Gutierres MD 02/01/2021 13:51 Sam Gutierres MD in [place] 02/01/2021 13:51
== END ==
PROVIDERS: PCP Nurse Practitioner Family; Visit Provider Internal Medicine Cardiovascular Disease
DX: Z13.6 Encounter for screening for cardiovascular disorders (principal); R06.00 Dyspnea, unspecified; I10 Essential (primary) hypertension; E10.51 Type 1 diabetes mellitus with diabetic peripheral angiopathy without gangrene; E78.2 Mixed hyperlipidemia; Z72.0 Tobacco use
CPT/HCPCS: 75571

== ENCOUNTER → 2022-06-05 15:16 | Outpatient (CLI) | payer MEDICAID, SELFPAY ==
--- NOTE | 2022-06-05 15:20 | XR_ITS ---
FINAL REPORT CLINICAL HISTORY: right 3rd tip ulcer COMPARISON: November 18, 2020 FINDINGS: RIGHT FOOT Three views of the right foot were obtained. There is no acute fracture or dislocation. There has been amputation of the 1st digit. 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 The previously noted subcutaneous emphysema has resolved. There is no bony erosion. IMPRESSION: Postoperative changes with no acute bony abnormality. Reviewed, Interpreted and Dictated by Tucker Moran MD Transcribed by Paula Smith Authenticated and . [facility]
[2022-06-05 17:40] LABS: Basophils # 0.1 K/mm3 (0-0.2); Basophils % 1.3 % (0.1-2.0); Eosinophils # 0.2 K/mm3 (0.0-0.4); Eosinophils % 2.1 % (0.1-12.0); Hematocrit 34.4 % (42.0-52.0); Hemoglobin 10.9 g/dL (14.1-18.0); Lymphocytes % 12.6 % (10-50); Mean Corpuscular HGB Conc 31.7 g/dL (31.8-35.4); Mean Corpuscular Hemoglobin 32.2 pg (27.0-31.2); Mean Corpuscular Volume 101.7 fl (80-94); Mean Platelet Volume 8.8 fl (7.4-10.4); Monocytes # 0.4 K/mm3 (0.1-1.0); Monocytes % 4.7 % (1.7-9.3); Neutrophils # 6.5 K/mm3 (1.8-7.8); Neutrophils % 79.3 % (37.0-80.0); Platelet Count 460 K/mm3 (142-424); Red Blood Count 3.38 M/mm3 (4.60-6.20); Red Cell Distribution Width 14.1 % (11.5-17.5); White Blood Count 8.2 K/mm3 (4.8-10.8)
[2022-06-05 18:33] LABS: Erythrocyte Sedimentation Rate 72 mm/hr (0-15)
[2022-06-05 18:54] LABS: Alanine Aminotransferase 246 U/L (12-78); Albumin Level 3.4 g/dl (3.5-5.0); Albumin/Globulin Ratio 1.6 (1.1-1.8); Alkaline Phosphatase 267 U/L (38-126); Anion Gap 10.7 mEq/L (5-15); Aspartate Amino Transferase 139 U/L (17-59); Blood Urea Nitrogen 39 mg/dl (9-20); Calcium 8.7 mg/dl (8.4-10.2); Carbon Dioxide 31 mmol/L (22.0-30.0); Chloride 94 mmol/L (98-107); Estimated Glomerular Filt Rate 50 ml/min (>60); GFR (African American) 61 ML/MIN (>60); Globulin 2.1 g/dL (1.3-3.2); Potassium 5.7 mmoL/L (3.5-5.1); Sodium 130 mmol/L (136-145); Total Protein,Serum 5.5 g/dl (6.3-8.2)
[2022-06-05 19:00] LABS: C-Reactive Protein 5.5 mg/L (0-4)
[2022-06-05 19:18] LABS: Bilirubin,Total < 0.1 mg/dl (0.2-1.3); Glucose 429 mg/dl (74-100)
== END ==
PROVIDERS: Visit Provider Nurse Practitioner Family
DX: E10.21 Type 1 diabetes mellitus with diabetic nephropathy (principal); E08.621 Diabetes mellitus due to underlying condition with foot ulcer; L97.512 Non-pressure chronic ulcer of other part of right foot with fat layer exposed; M86.271 Subacute osteomyelitis, right ankle and foot; Z79.4 Long term (current) use of insulin
CPT/HCPCS: 36415; 73630; 80053; 85025; 85651; 86140; 87070; 87186; 87205

== ENCOUNTER → 2022-10-10 09:43 | Outpatient (CLI) | payer MEDICAID, SELFPAY ==
[2022-10-10 10:36] LABS: Basophils # 0.1 K/mm3 (0-0.2); Basophils % 1.4 % (0.1-2.0); Eosinophils # 0.6 K/mm3 (0.0-0.4); Hematocrit 33.8 % (42.0-52.0); Hemoglobin 11.3 g/dL (14.1-18.0); Lymphocytes # 1.2 K/mm3 (0.7-4.5); Lymphocytes % 15.4 % (10-50); Mean Corpuscular HGB Conc 33.6 g/dL (31.8-35.4); Mean Corpuscular Hemoglobin 31.6 pg (27.0-31.2); Mean Corpuscular Volume 94.1 fl (80-94); Monocytes # 0.3 K/mm3 (0.1-1.0); Monocytes % 3.8 % (1.7-9.3); Neutrophils # 5.7 K/mm3 (1.8-7.8); Neutrophils % 72.4 % (37.0-80.0); Platelet Count 308 K/mm3 (142-424); Red Blood Count 3.59 M/mm3 (4.60-6.20); White Blood Count 7.9 K/mm3 (4.8-10.8)
[2022-10-10 10:57] LABS: Alanine Aminotransferase 26 U/L (12-78); Albumin Level 3.9 g/dl (3.5-5.0); Alkaline Phosphatase 114 U/L (38-126); Anion Gap 11.9 mEq/L (5-15); Aspartate Amino Transferase 30 U/L (17-59); Bilirubin,Direct 0.1 mg/dl (0.0-0.4); Bilirubin,Indirect 0.2 mg/dL (0.0-0.9); Bilirubin,Total 0.3 mg/dl (0.2-1.3); Bilirubin,Unconjugated 0.2 mg/dL (0.0-1.1); Blood Urea Nitrogen 41 mg/dl (9-20); Calcium 9.5 mg/dl (8.4-10.2); Carbon Dioxide 29 mmol/L (22.0-30.0); Chloride 103 mmol/L (98-107); Estimated Glomerular Filt Rate 50 ml/min (>60); GFR (African American) 61 ML/MIN (>60); Glucose 210 mg/dl (74-100); Magnesium 2.2 mg/dl (1.6-2.3); Potassium 4.9 mmoL/L (3.5-5.1); Sodium 139 mmol/L (136-145); Total Protein,Serum 6.3 g/dl (6.3-8.2)
[2022-10-10 11:11] LABS: Free T4 (Free Thyroxine) 0.91 ng/dl (0.78-2.19)
[2022-10-10 12:44] LABS: Chol/HDL Ratio 3.3 (1-3.5); Cholesterol 219 mg/dl (140-200); HDL Cholesterol 67 mg/dl (40-60); Triglycerides 110 mg/dl (30-150); VLDL Cholesterol 22 mg/dL (0-40)
[2022-10-10 13:08] LABS: Direct LDL Cholesterol 101.39 mg/dL (100-129)
== END ==
PROVIDERS: PCP Nurse Practitioner Family; Visit Provider Nurse Practitioner
DX: R06.00 Dyspnea, unspecified (principal); R53.83 Other fatigue; I10 Essential (primary) hypertension; E10.51 Type 1 diabetes mellitus with diabetic peripheral angiopathy without gangrene; E78.2 Mixed hyperlipidemia; I73.9 Peripheral vascular disease, unspecified; F17.200 Nicotine dependence, unspecified, uncomplicated; Z79.4 Long term (current) use of insulin
CPT/HCPCS: 36415; 80048; 80061; 80076; 83735; 84439; 84443; 85025

== ENCOUNTER → 2022-10-25 12:39 | Outpatient (CLI) | payer MEDICAID, SELFPAY ==
--- NOTE | 2022-10-25 | CA_ITS ---
APPROVED REPORT Exam: Pharmacologic Technologist: Linda Reno, Ht: 6 ft 5 in Wt: 156 lbs BSA: 2.01 m2 HR: 103 bpm BP: 180/96 mmHg Rhythm: NSR, NORMAL Indications: SOA, Claudication Medical History Medical History: HTN, , Hyperlipidemia, Diabetes Medications: Lisinopril,,,,, Metoprolol,,,,, Carvedilol,,,,, INSULIN,,,,, Allergies: No known drug allergies Cardiac Risk Factors: HTN, Hyperlipidemia, Diabetes , Smoking Stress Test Details Test: LEXISCAN HR Resting HR: 107 bpm Max Heart Rate (APMHR): 173.712829 bpm Max HR Achieved: 113 bpm Target HR (85% APMHR): 147.880366 bpm % of APMHR: 65.32 Recovery HR: 108 bpm BP Resting BP: 180/96 mmHg Max BP: 180/96 mmHg Recovery BP: 173.0/95.0 mmHg ECG Resting ECG: NSR, NORMAL Clinical Exercise duration: 04:14 min Highest Stage Achieved: Exercise capacity: 1.0 METs Stress ECG Conclusion PT HAD MILD SOA. NO CP. NO SIGNIFICANT CHANGES. UNREMARKABLE LEXISCAN STRESS. MYOVIEW UMAGES REPORTED SEPARATELY CARVEDILOL 1.5MG PO GIVEN FOR ELEVATED BP Test Summary REST 04:49 . . 107 . 180/ 96 . . Stage 1 01:00 . . 112 . . . . Stage 2 01:00 . . 111 . 167/ 91 . . Stage 3 01:00 . . 106 . 169/ 90 . . Stage 4 01:00 . . 108 . 173/ 92 . . Stage 4 01:14 . . 107 . 173/ 92 . Stop exercise at 04:14 RECOVERY 01:00 . . 111 . . . . RECOVERY 02:00 . . 106 . 177/ 98 . . RECOVERY 03:00 . . 106 . 173/ 95 . . RECOVERY 03:45 . . 107 . 173/ 95 . . Electronically signed by : Jemal Portillo MD 10/26/2022 10:00:42
--- NOTE | 2022-10-25 12:39 | NM_ITS ---
APPROVED REPORT Exam: Nuclear Stress Test Indication: Fatigue, HTN, DM, High cholesterol, Tobacco use Patient Location: Outpatient Stress Tech: Linda Reno [place] Tech:Tati Serra, ARRT, RT (R)(N) Ht: 6 ft 5 in Wt: 160 lbs HR: 107 bpm BP: 180/96 mmHg BSA: 2.03 m2 TID: 1.09 BMI: 18.9 History: Fatigue, HTN, DM, High cholesterol, Tobacco use Procedure: Patient received a 0.4 mg of intravenous Lexiscan, resting heart rate 107 bpm, resting blood pressure 180/96 mmHg, with Lexiscan maximum heart rate achived was 113 bpm which is Less than 85 % of the maximum predicted heart rate and blood pressure was 180/96 mmHg. With Lexiscan, patient denied any complaint of chest pain. Electrocardiogram Resting electrocardiogram shows sinus rhythm, with Lexiscan there is less than 1.[address] segment depression noted from the baseline EKG. The EKG portion of the Lexiscan is nondiagnostic. Cardiac Stress and Resting SPECT Images: Cardiac Stress and Resting SPECT images were obtained using technetium 99m Myoview 31.3 mCi stress and 10.45 mCi at rest. Gated SPECT analysis of segmental wall motion and calculation of the ejection fraction also done. Prone images were also obtained. Cardiac prone images show uniform myocardial activity without segmental perfusion abnormality, computer derived ejection fraction of 45% with no regional wall motion abnormality, right ventricle is normal size and contractility. Conclusion: 1. The EKG portion of the Lexiscan is nondiagnostic. 2. No scintigraphic evidence of reversible ischemia seen, computer derived ejection fraction 45% with no regional wall motion abnormality, right ventricle is normal size and contractility. 3. Normal perfusion imaging with borderline low ejection fraction. Electronically signed by : Jemal Portillo MD 10/26/2022 10:02:47
--- NOTE | 2022-10-25 12:50 | CA_ITS ---
APPROVED REPORT EXAM: Comprehensive 2D, Doppler, and color-flow Echocardiogram Mammographer: Ceci Brambila, RCS, RVS Ht: 6 ft 6 in Wt: 156lbs BSA: 2.03 BP: 107/69 mmHg Indications: Shortness of Breath, Diabetes, Hypertension/HDD 2D Dimensions IVSd 0.71 cm LVEF (Visual) 45.90 % PWd 1.08 cm LA Volume 57.70 mL LVDd 5.24 cm LA Volume Index 28.40 mL/m2 (M/F) 16-34 LVDs 4.03 cm Aortic Root 3.80 cm Left Atrium 3.09 cm LVOT 2.19 cm (M/F) 1.5-2.5 M-Mode Dimensions RVDd 1.21 cm (0.9-2.6) LA Diam 2.84 cm (1.9-4.0) LVDd 5.49 cm (3.5-5.7) Ao Diam 3.96 cm (2.0-3.7) LVDs 4.03 cm (3.5-5.7) IVSd 0.84 cm (0.6-1.1) PWd 0.77 cm (0.6-1.1) EF (Teich) 48.20% EPSs 0.98 cm FS 24.50% EDV (Teich) 137.70 mL TAPSE 2.50 (<1.7) ESV (Teich) 71.30 mL LV Diastology E Decel Time 233.00 (160-240 msec) E/A Ratio 1.08 MED E' 9.70 (< 7 cm/sec) MED A' 14.50 cm/s E'/MED E' Ratio 8.19 (>14) LAT E' 14.30 (<10 cm/sec) LAT A' 13.80 cm/s E/LAT E' Ratio 5.55 (>14) Aortic Valve LVOT Max 97.00 (70-110 cm/s) LVOT VTI 17.21 cm AoV Peak Tray. 121.00 (50-130 cm/s) AO Peak GR. 5.90 mmHg AO Mean GR. 2.90 (<5 mmHg) AO VTI 21.76 (18-25 cm) ANTIONE (VTI) 2.98 (2.5-4.5 cm2) Mitral Valve MV A Velocity 74.00 (40-130 cm/s) E/A Ratio 1.08 MV Decel. Time 233.00 (160-240 ms) Pulmonary Valve PV Peak Velocity 89.00 (50-150 cm/s) Left Ventricle Left atrium is normal size left ventricle is normal size, estimated ejection fraction 55% with no regional wall motion abnormality, diastolic parameters are within normal range. Right Ventricle Right atrium and right ventricle are normal size and contractility. Aortic Valve Aortic valve is minimally thickened and fibrosed there is no aortic stenosis aortic insufficiency. Mitral Valve Mitral valve grossly normal, there is trace mitral regurgitation. Tricuspid Valve Tricuspid grossly normal, there is trace tricuspid regurgitation, tricuspid regurgitation jet velocity is inadequate for calculation of the right ventricular systolic pressure. Pulmonic Valve Pulmonic valve is poorly visualized. Great Vessels Aortic root is normal size. Inferior vena cava is poorly visualized. Pericardium No significant pericardial effusion noted. Conclusion 1. Normal left ventricular size preserved left ventricular systolic function, estimated ejection fraction 55% with no regional wall motion abnormality, diastolic parameters are within normal range. 2. Trace mitral and tricuspid regurgitation. 3. No significant pericardial effusion. 4. Inferior vena cava is poorly visualized. Electronically signed by : Jemal Portillo MD 10/26/2022 13:21:40
--- NOTE | 2022-10-25 12:50 | US_ITS ---
FINAL REPORT CLINICAL HISTORY: Claudication dyspnea/fatigue/anginal equivalent, DM. HTN, HLD, FINDINGS: COMPLETE ANKLE/BRACHIAL INDICES BILATERAL Complete ankle brachial indices were obtained. The right ANTONIO is 1.2. The left ANTONIO is 1.2. IMPRESSION: ABIs are within normal limits bilaterally. Reviewed, Interpreted and Dictated by Pavan Martin III, MD Transcribed by Alie Gould Authenticated and [facility]
== END ==
PROVIDERS: PCP Nurse Practitioner Family; Visit Provider Nurse Practitioner
DX: R06.00 Dyspnea, unspecified (principal); I73.9 Peripheral vascular disease, unspecified; I10 Essential (primary) hypertension; E10.51 Type 1 diabetes mellitus with diabetic peripheral angiopathy without gangrene; E78.2 Mixed hyperlipidemia; R53.83 Other fatigue; F17.200 Nicotine dependence, unspecified, uncomplicated
CPT/HCPCS: 78452; 93017; 93306; 93923; A9502; J2785

== ENCOUNTER 2023-06-13 11:58 | Emergency (ER) | payer MEDICAID, SELFPAY ==
[2023-06-13 11:59] VITALS: BP 220/127; PULSE 102; RESP 16; TEMP 36.6; O2SAT 100; BMI 18.9
--- NOTE | 2023-06-13 12:19 | PC.NURSE ---
pt stating wants to leave prior to seeing ER MD, states he has lisinopril at home he is going to go home and take medication. Pt reports he does have a pcp, requested to pt that he make a f/u appt with pcp, call this afternoon to request a soon appt-pt verbalized he would. Pt asked again if he has a headache, dizziness, blurry vision, chest pain, soa-pt denies all. States to pt if he has any concerns develops any of the symptoms we discussed to return to ER, pt verbalized understanding. ER MD notified of the above.
[2023-06-13 12:26] VITALS: BP 220/127; PULSE 102; RESP 16; TEMP 36.6; O2SAT 100
== END 2023-06-13 12:26 | disposition left against medical advice (07) ==
LOC: ER 12:19
PROVIDERS: Emergency Provider Emergency Medicine; PCP Family Medicine
DX: Z53.21 Procedure and treatment not carried out due to patient leaving prior to being seen by health care provider (principal)
CPT/HCPCS: 99211